=== PATIENT | female | born 1965 | race Caucasian/White ===

== ENCOUNTER → 2017-02-11 | Outpatient (CLI) | payer OTHER ==
[~2017-02-11] MED LIST: ACET-1311 PO; ADALKIT SQ; BUSP-8 PO; BUTACAP36 PO; DIAZ5TAB3 PO; EPP3/2 IM; HYDR-5688 PO; IPRA0.06 NAE; LAMO200T38 PO; LEVO25TA5 PO; LITH1TAB10 PO; MOME1AER5 NAE; QUET1TAB13 PO; TOPI25TA99 PO; TOPI50TA16 PO
[2017-02-11 12:44] LABS: BLOOD UREA NITROGEN 14 mg/dl (7-18); GLUCOSE 92 mg/dl (70-99)
[2017-02-11 12:45] LABS: BUN/CREATININE RATIO 14.2 (10-20); CALCIUM 9.4 mg/dl (8.5-10.1); CARBON DIOXIDE 26 mmol/L (21-32); CHLORIDE 108 mmol/L (98-107); CREATININE 0.96 mg/dl (0.60-1.20); POTASSIUM 4.2 mmol/L (3.5-5.1); SODIUM 140 mmol/L (136-145)
[2017-02-11 13:02] LABS: CHOLESTEROL 213 mg/dl (0-200); HDL CHOLESTEROL 53 mg/dl; LDL CHOLESTEROL CALCULATED 141 mg/dl; TRIGLYCERIDES 96 mg/dl (0-150); VERY LOW DENSITY LIPOPROT CALC 19 mg/dl
== END | disposition home or self-care (01) ==
LOC: C.LAB 11:29
PROVIDERS: ATTEND Psychiatry & Neurology Child & Adolescent Psychiatry
DX: F31.62 Bipolar disorder, current episode mixed, moderate (principal); Z79.899 Other long term (current) drug therapy

== ENCOUNTER → 2017-07-06 | Outpatient (CLI) | payer OTHER | END | disposition home or self-care (01) | LOC: C.RDSM 13:21 | PROVIDERS: ATTEND Physical Medicine & Rehabilitation Sports Medicine | DX: M25.522 Pain in left elbow (principal) ==

== ENCOUNTER → 2018-01-19 | Outpatient (CLI) | payer OTHER ==
[~2018-01-19] MED LIST changes: +LAMO200T35 PO; -LAMO200T38 PO
[2018-01-19 18:07] LABS: BLOOD UREA NITROGEN 13 mg/dl (7-18); CALCIUM 9.9 mg/dl (8.5-10.1); CARBON DIOXIDE 25 mmol/L (21-32); CREATININE 0.93 mg/dl (0.60-1.20); GLUCOSE 92 mg/dl (70-99); POTASSIUM 4.3 mmol/L (3.5-5.1); SODIUM 134 mmol/L (136-145)
[2018-01-19 18:18] LABS: CHOLESTEROL 217 mg/dl (0-200); LDL CHOLESTEROL CALCULATED 139 mg/dl
== END | disposition home or self-care (01) ==
LOC: C.LABMFLN 12:01
PROVIDERS: ATTEND Psychiatry & Neurology Child & Adolescent Psychiatry
DX: F31.62 Bipolar disorder, current episode mixed, moderate (principal); Z79.899 Other long term (current) drug therapy